=== PATIENT | female | born 1935 | race Caucasian/White ===

== ENCOUNTER 2019-04-14 16:10 | Outpatient (RCR) | payer MEDICARE, OTHER, SELFPAY | END 2019-05-04 12:34 | disposition home or self-care (01) | LOC: PT.CARL 16:10 | PROVIDERS: PCP Family Medicine; Visit Provider Orthopaedic Surgery | DX: M75.41 Impingement syndrome of right shoulder (principal) | CPT/HCPCS: 97110; 97163 ==

== ENCOUNTER → 2019-05-27 11:03 | Outpatient (CLI) | payer MEDICARE, OTHER, SELFPAY ==
[2019-05-27 11:42] LABS: Basophils % 0.3 % (0.1-2.0); Eosinophils # 0.2 K/mm3 (0.0-0.4); Eosinophils % 2.3 % (0.1-12.0); Hematocrit 42.5 % (37.0-47.0); Hemoglobin 13.4 g/dL (12.2-16.2); Lymphocytes # 2.7 K/mm3 (0.7-4.5); Lymphocytes % 32.9 % (10-50); Mean Corpuscular HGB Conc 31.6 g/dL (31.8-35.4); Mean Corpuscular Volume 98.3 fl (81-99); Mean Platelet Volume 9.2 fl (7.4-10.4); Monocytes # 0.4 K/mm3 (0.1-1.0); Monocytes % 5.2 % (1.7-9.3); Neutrophils # 4.9 K/mm3 (1.8-7.8); Neutrophils % 59.3 % (37.0-80.0); Platelet Count 224 K/mm3 (142-424); Red Blood Count 4.33 M/mm3 (4.20-5.40); Red Cell Distribution Width 13.6 % (11.5-17.5); White Blood Count 8.2 K/mm3 (4.8-10.8)
[2019-05-27 12:09] LABS: Alanine Aminotransferase 19 U/L (12-78); Albumin Level 4.2 g/dl (3.5-5.0); Albumin/Globulin Ratio 1.7 (1.1-1.8); Alkaline Phosphatase 100 U/L (38-126); Anion Gap 12.3 mEq/L (5-15); Aspartate Amino Transferase 31 U/L (14-36); Bilirubin,Total 0.3 mg/dl (0.2-1.3); Blood Urea Nitrogen 19 mg/dl (7-17); Calcium 9.9 mg/dl (8.4-10.2); Carbon Dioxide 26 mmol/L (22.0-30.0); Chloride 106 mmol/L (98-107); Estimated Glomerular Filt Rate 60 ml/min (>60); GFR (African American) 73 ML/MIN (>60); Globulin 2.5 g/dL (1.3-3.2); Glucose 126 mg/dl (74-100); Lipase 81 U/L (23-300); Potassium 4.3 mmoL/L (3.5-5.1); Sodium 140 mmol/L (136-145); Total Protein,Serum 6.7 g/dl (6.3-8.2)
[2019-05-27 12:30] LABS: Troponin I < 0.01 ng/ml (0.00-0.034)
[2019-05-27 12:40] LABS: Thyroid Stimulating Hormone 1.97 uIU/mL (0.465-4.68)
== END ==
PROVIDERS: Visit Provider Internal Medicine Adolescent Medicine
DX: R07.89 Other chest pain (principal); E03.9 Hypothyroidism, unspecified
CPT/HCPCS: 36415; 80053; 83690; 84443; 84484; 85025

== ENCOUNTER → 2019-06-01 06:59 | Outpatient (CLI) | payer MEDICARE, OTHER, SELFPAY ==
--- NOTE | 2019-06-01 | CA_ITS ---
APPROVED REPORT Exam: Pharmacologic Technologist: Nolvia Mcnally Ht: 5 ft 7 in Wt: 160 lbs BSA: 1.84 m2 HR: 72 bpm BP: 177/84 mmHg Indications: Chest pain, Shortness of Breath Medical History Medications: Omeprazole,,,,, Levothyroxine,,,,, Stress Test Details Test: LEXISCAN HR Resting HR: 74 bpm Max Heart Rate (APMHR): 138 bpm Max HR Achieved: 117 bpm Target HR (85% APMHR): 117 bpm % of APMHR: 84 Recovery HR: 99 bpm BP Resting BP: 177.0/84.0 mmHg Max BP: 177.0/84.0 mmHg Recovery BP: 173.0/95.0 mmHg ECG Clinical Exercise duration: 04:01 min Highest Stage Achieved: Exercise capacity: 1.0 METs Stress ECG Conclusion Resting ECG: Sinus rhythm Lexiscan portion completed. Patient complained of bilateral arm and leg pain during peak infusion. Symptoms: Bilateral arm and leg pain during peak infusion. Resolved in recovery. No chest pain. No shortness of breath. Arrhythmias/Ectopy: Occasional PVC. ST-T Changes: Less than 1.[address] depression. Conclusion: Images to follow. Test Summary REST . . . . . . . Resting REST 07:17 . . 74 . 177/ 84 . . Stage 1 . . . . . . . Myoview Injected Stage 1 01:00 . . 103 . . . . Stage 2 01:00 . . 117 . 172/ 83 . . Stage 3 01:00 . . 115 . 174/ 83 . . Stage 4 01:00 . . 109 . 166/ 80 . . Stage 4 01:01 . . 109 . 166/ 80 . Stop exercise at 04:01 RECOVERY 01:00 . . 105 . . . . RECOVERY 02:00 . . 98 . 151/ 78 . . RECOVERY 03:00 . . 97 . 169/ 79 . . RECOVERY 04:00 . . 103 . 169/ 87 . . RECOVERY 05:00 . . 99 . 173/ 95 . . RECOVERY 06:00 . . 94 . 173/ 95 . . RECOVERY 06:22 . . 91 . 173/ 95 . . Electronically signed by : Agustín Araujo, 06/01/2019 19:36:49
--- NOTE | 2019-06-01 07:44 | NM_ITS ---
APPROVED REPORT Exam: Nuclear Stress Test Indication: Chest pain, Family history Patient Location: Outpatient Stress Tech: Nolvia Mcnally [place] Tech:Taylor Goodman, ARRT, RT (R)(N) Ht: 5 ft 7 in Wt: 160 lbs Bra Size: 40C HR: 72 bpm BP: 177/84 mmHg BSA: 1.84 m2 BMI: 25.0 History: Chest pain, Family history Procedure: Patient received a 0.4 mg of intravenous Lexiscan, resting heart rate 72 bpm, resting blood pressure 177/84 mmHg, with Lexiscan maximum heart rate achived was 117 bpm which is Less than 85 % of the maximum predicted heart rate and blood pressure was 172/83 mmHg. With Lexiscan, patient denied any complaint of chest pain. Electrocardiogram The resting electrocardiogram showed sinus rhythm, with Lexiscan there is less than 1.[address] segment depression noted from the baseline EKG. The EKG portion of the Lexiscan Myoview is nondiagnostic. Cardiac Stress and Resting SPECT Images: Cardiac Stress and Resting SPECT images were obtained using technetium 99m Myoview 32.3 mCi stress and 10.35 mCi at rest. Gated SPECT with analysis of segmental wall motion and calculation of the ejection fraction also done. Cardiac stress and resting SPECT images show decreased tracer activity in the anterolateral lateral wall which improves on the resting images suggestive of reversible ischemia, computer derived ejection fraction is 58% with mild anterolateral and lateral wall hypokinesis. Right ventricle is normal size and contractility. Conclusion: 1. The EKG portion of the Lexiscan Myoview is nondiagnostic. 2. Scintigraphic evidence of mild reversible ischemia involving the anterolateral and lateral wall, computer derived ejection fraction is 58% with segmental wall motion abnormality described above, right ventricle is normal size and contractility. 3. Abnormal Lexiscan Myoview study. Electronically signed by : Agustín Araujo, 06/01/2019 19:40:01
--- NOTE | 2019-06-01 07:47 | HMH.ITSHM ---
Current Home Medications as stated by this patient Ignacia Maldonado or account development representative. []PRILOSEC LEVOTHYROXINE
== END ==
PROVIDERS: PCP Family Medicine; Visit Provider Internal Medicine Adolescent Medicine
DX: R07.89 Other chest pain (principal)
CPT/HCPCS: 78452; 93017; A9502; J2785

== ENCOUNTER 2019-06-15 08:05 | Day surgery (SDC) | payer MEDICARE, OTHER, SELFPAY ==
[2019-06-15] VITALS (13 sets, daily range): BP systolic 142–180; BP diastolic 57–97; PULSE 67–88; RESP 14–20; TEMP 36.6–36.8; O2SAT 96–99; BMI 24.6
[2019-06-15 08:45] LABS: Basophils # 0.1 K/mm3 (0-0.2); Basophils % 0.8 % (0.1-2.0); Eosinophils # 0.4 K/mm3 (0.0-0.4); Eosinophils % 4.8 % (0.1-12.0); Hematocrit 43.9 % (37.0-47.0); Hemoglobin 13.7 g/dL (12.2-16.2); Lymphocytes # 2.4 K/mm3 (0.7-4.5); Lymphocytes % 30.9 % (10-50); Mean Corpuscular HGB Conc 31.2 g/dL (31.8-35.4); Mean Corpuscular Hemoglobin 30.6 pg (27.0-31.2); Mean Corpuscular Volume 98.1 fl (81-99); Mean Platelet Volume 8.9 fl (7.4-10.4); Monocytes # 0.4 K/mm3 (0.1-1.0); Monocytes % 5.7 % (1.7-9.3); Neutrophils # 4.4 K/mm3 (1.8-7.8); Neutrophils % 57.7 % (37.0-80.0); Platelet Count 230 K/mm3 (142-424); Red Blood Count 4.47 M/mm3 (4.20-5.40); Red Cell Distribution Width 13.6 % (11.5-17.5); White Blood Count 7.7 K/mm3 (4.8-10.8)
[2019-06-15 08:47] LABS: Chloride 106 mmol/L (98-107); Potassium 4.3 mmoL/L (3.5-5.1); Sodium 142 mmol/L (136-145)
[2019-06-15 08:50] LABS: Anion Gap 13.3 mEq/L (5-15); Blood Urea Nitrogen 18 mg/dl (7-17); Calcium 9.5 mg/dl (8.4-10.2); Carbon Dioxide 27 mmol/L (22.0-30.0); Creatinine Clearance Estimated 50 mL/min (50-200); Estimated Glomerular Filt Rate 60 ml/min (>60); GFR (African American) 73 ML/MIN (>60); Glucose 144 mg/dl (74-100)
--- NOTE | 2019-06-15 09:00 | IR_ITS ---
APPROVED REPORT Patient Location: Outpatient Audio Visual Arts Director: CJ Young RT (R) PROCEDURES Left heart catheterization Left ventriculogram Selective coronary angiogram Drug-eluting stent deployment to the proximal dominant right coronary artery INDICATION High risk abnormal stress test, Coronary artery disease Informed consent was obtained prior to the procedure. COMPLICATIONS none Estimated Blood Loss: less than 10 mls TECHNIQUE One percent lidocaine used to anesthetize the right anterior aspect of the wrist. The right radial artery was accessed via the Seldinger technique. A 6 Burkin[place] sheath was placed in the right radial artery. 2.5 mg of verapamil, 800 mcg of nitroglycerin, 1mg Lidocaine and 5000 U Heparin were given through the arterial sheath. The trap catheter was also used to perform left heart catheterization, left ventriculogram and selective coronary angiogram. At the end the diagnostic procedure therapeutic heparin was administered giving a therapeutic ACT. And I Leydi right guide catheter was used to intubate the right coronary artery and a BMW wire was used to traverse the stenosis in the right coronary artery. A 3.5 x 18 mm resolute amari stent was deployed at 20 slim reducing the severe stenosis to 0%. JENNIE-3 flow was present before and after the procedure. After achieving excellent angiographic results the apparatus was removed the sheath was removed good hemostasis was achieved using TR banding patient was transferred to the postop holding area in stable condition ANGIOGRAPHIC RESULTS The left main artery Normal The left anterior descending artery Normal The circumflex artery Is nondominant and has proximal 40% stenosis The right coronary artery Is a large dominant vessel has a proximal concentric 70 to 80% stenosis The FENG ventriculogram reveals Normal 65% The left ventricular end-diastolic pressure 10 mmHg IMPRESSION Severe single-vessel coronary disease as described above Successful stenting of a proximal dominant right coronary artery severe disease reduced to 0% with one drug-eluting stent Persistent moderate stenosis in a small nondominant circumflex artery Normal ejection fraction Normal left ventricular end-diastolic pressure PLAN 1. Dual antiplatelet therapy 2. LDL less than 55 3. Cardiac rehabilitation 4. Avoidance of tobacco products 5. Risk factor modification Electronically signed by : Isaias Minor, 06/15/2019 10:47:40
[2019-06-15 12:12] LABS: CATHL Activated Clotting Time 305 SEC (74-125)
--- NOTE | 2019-06-15 13:54 | HMH.PHACLD ---
Ignacia Maldonado has received discharge medication counseling on the following medications: BRILINTA 90MG LISINOPRIL 10MG LIPITOR 40MG PATIENT IS ALREADY TAKING METOPROLOL AND ASPIRIN AT HOME. PATIENT IS TO CONTINUE ALL OTHER HOME MEDICATIONS. SHE VERBALIZED UNDERSTANDING AND HAD NO QUESTIONS AT THIS TIME. -Kendall FUENTES PHARMD
== END 2019-06-15 14:35 | disposition home or self-care (01) ==
LOC: CATHLAB 08:07
PROVIDERS: PCP Family Medicine; Visit Provider Internal Medicine
DX: K21.9 Gastro-esophageal reflux disease without esophagitis; R94.31 Abnormal electrocardiogram [ECG] [EKG]; R94.39 Abnormal result of other cardiovascular function study; Z82.49 Family history of ischemic heart disease and other diseases of the circulatory system; I25.118 Atherosclerotic heart disease of native coronary artery with other forms of angina pectoris; Z79.899 Other long term (current) drug therapy
CPT/HCPCS: 80048; 85025; 85347; 92928; 93458; 99152; C1725; C1769; C1876; C9600; J1644; Q9967

== ENCOUNTER 2023-09-25 14:00 | Outpatient (RCR) | payer MEDICARE, OTHER, SELFPAY | END 2023-10-29 12:59 | disposition home or self-care (01) | LOC: PT 14:00 | PROVIDERS: Visit Provider Orthopaedic Surgery Adult Reconstructive Orthopaedic Surgery | DX: M70.62 Trochanteric bursitis, left hip (principal); Z96.642 Presence of left artificial hip joint | CPT/HCPCS: 97014; 97035; 97110; 97163; G0283 ==

== ENCOUNTER 2023-12-24 15:00 | Outpatient (CLI) | payer MEDICARE, OTHER, SELFPAY ==
[2023-12-24 16:15] LABS: Basophils # 0.1 K/mm3 (0-0.2); Basophils % 0.6 % (0.1-2.0); Eosinophils # 0.1 K/mm3 (0.0-0.4); Eosinophils % 1.3 % (0.1-12.0); Hematocrit 42.1 % (37.0-47.0); Lymphocytes # 2.8 K/mm3 (0.7-4.5); Mean Corpuscular HGB Conc 33.2 g/dL (31.8-35.4); Mean Corpuscular Hemoglobin 31.2 pg (27.0-31.2); Mean Corpuscular Volume 93.9 fl (81-99); Mean Platelet Volume 8.6 fl (7.4-10.4); Monocytes # 0.5 K/mm3 (0.1-1.0); Monocytes % 5.7 % (1.7-9.3); Neutrophils # 4.8 K/mm3 (1.8-7.8); Neutrophils % 58.4 % (37.0-80.0); Platelet Count 243 K/mm3 (142-424); Red Blood Count 4.48 M/mm3 (4.20-5.40); Red Cell Distribution Width 13.8 % (11.5-17.5); White Blood Count 8.3 K/mm3 (4.8-10.8)
[2023-12-24 16:44] LABS: Alanine Aminotransferase 24 U/L (12-78); Albumin Level 4.2 g/dl (3.5-5.0); Albumin/Globulin Ratio 1.8 (1.1-1.8); Alkaline Phosphatase 135 U/L (38-126); Anion Gap 15.2 mEq/L (5-15); Aspartate Amino Transferase 33 U/L (14-36); Bilirubin,Total 0.6 mg/dl (0.2-1.3); Blood Urea Nitrogen 23 mg/dl (7-17); Calcium 10.1 mg/dl (8.4-10.2); Carbon Dioxide 21 mmol/L (22.0-30.0); Chloride 109 mmol/L (98-107); Estimated Glomerular Filt Rate 59 ml/min (>60); GFR (African American) 72 ML/MIN (>60); Globulin 2.3 g/dL (1.3-3.2); Glucose 155 mg/dl (74-100); Potassium 4.2 mmoL/L (3.5-5.1); Sodium 141 mmol/L (136-145); Total Protein,Serum 6.5 g/dl (6.3-8.2); Uric Acid 5.6 mg/dl (2.5-6.2)
[2023-12-24 16:58] LABS: Troponin I < 0.01 ng/ml (0.00-0.034)
[2023-12-24 16:59] LABS: T4 (Thyroxine) 7.3 ug/dl (5.53-11.0)
[2023-12-24 17:57] LABS: Erythrocyte Sedimentation Rate 17 mm/hr (0-30)
[2023-12-24 17:58] LABS: HIV (1&2) Antibody Rapid NONREACTIVE (NONREACTIVE)
[2023-12-25 05:15] LABS: HCV Ab Non Reactive (Non Reactive)
== END 2023-12-24 23:59 | disposition home or self-care (01) ==
LOC: LAB.DROPOF 12-25 11:41
PROVIDERS: PCP Family Medicine; Visit Provider Family Medicine
DX: E78.5 Hyperlipidemia, unspecified (principal); I10 Essential (primary) hypertension; Z11.59 Encounter for screening for other viral diseases
CPT/HCPCS: 80053; 84436; 84443; 84484; 84550; 85025; 85651; 86803; 87389

== ENCOUNTER 2024-03-13 10:58 | Observation (INO) | payer MEDICARE, OTHER, SELFPAY ==
[2024-03-13] VITALS (22 sets, daily range): BP systolic 93–168; BP diastolic 46–94; PULSE 60–97; RESP 14–24; TEMP 36.4–39.3; O2SAT 95–100; BMI 24.3; BMI 23.8
--- NOTE | 2024-03-13 11:22 | PC.NURSE ---
Patient in room and needs nothing
[2024-03-13 11:23] LABS: Basophils % 0.2 % (0.1-2.0); Eosinophils # 0.1 K/mm3 (0.0-0.4); Eosinophils % 0.4 % (0.1-12.0); Hematocrit 35.9 % (37.0-47.0); Hemoglobin 11.9 g/dL (12.2-16.2); Lymphocytes # 1.9 K/mm3 (0.7-4.5); Lymphocytes % 11.8 % (10-50); Mean Corpuscular HGB Conc 33.1 g/dL (31.8-35.4); Mean Corpuscular Hemoglobin 30.2 pg (27.0-31.2); Mean Corpuscular Volume 91.1 fl (81-99); Mean Platelet Volume 11.4 fl (7.4-10.4); Monocytes # 1.4 K/mm3 (0.1-1.0); Monocytes % 9.2 % (1.7-9.3); Neutrophils # 12.3 K/mm3 (1.8-7.8); Neutrophils % 77.8 % (37.0-80.0); Platelet Count 181 K/mm3 (142-424); Red Blood Count 3.94 M/mm3 (4.20-5.40); Red Cell Distribution Width 13.8 % (11.5-17.5); White Blood Count 15.7 K/mm3 (4.8-10.8)
--- NOTE | 2024-03-13 11:30 | PC.NURSE ---
pt was given a warm blanket no needs at this time call light in reach
--- NOTE | 2024-03-13 11:32 | PC.NURSE ---
VIDA VEE NOTIFIED OF BP TENDING DOWN
[2024-03-13 11:41] LABS: Albumin Level 3.8 g/dl (3.5-5.0); Chloride 105 mmol/L (98-107); Sodium 131 mmol/L (136-145)
[2024-03-13 11:43] LABS: Blood Urea Nitrogen 26 mg/dl (7-17); Creatinine Clearance Estimated 37 mL/min (50-200); Estimated Glomerular Filt Rate 42 ml/min (>60); GFR (African American) 51 ML/MIN (>60)
[2024-03-13 11:44] LABS: Alanine Aminotransferase 24 U/L (12-78); Alkaline Phosphatase 61 U/L (38-126); Aspartate Amino Transferase 41 U/L (14-36); Bilirubin,Total 1.1 mg/dl (0.2-1.3); Calcium 8.6 mg/dl (8.4-10.2); Carbon Dioxide 18 mmol/L (22.0-30.0); Glucose 144 mg/dl (74-100); Total Protein,Serum 6.2 g/dl (6.3-8.2)
[2024-03-13 11:48] LABS: Potassium 5.5 mmoL/L (3.5-5.1)
[2024-03-13 11:50] LABS: Albumin/Globulin Ratio 1.6 (1.1-1.8); Anion Gap 13.5 mEq/L (5-15); Globulin 2.4 g/dL (1.3-3.2)
--- NOTE | 2024-03-13 11:50 | ED_ITS ---
Discharge Plan Disposition Patient Disposition: Admitted Condition: Good Prescriptions Prescriptions: No Action metoprolol succinate 100 mg tablet extended release 24 hr 100 mg PO BID Patient Comments: TAKE 1 TABLET 2 TIMES EACH DAY amlodipine 5 mg tablet 5 mg PO DAILY Patient Comments: TAKE 1 TABLET 1 TIME EACH DAY IN THE EVENING oseltamivir 75 mg capsule 75 mg PO DAILY Patient Comments: TAKE ONE CAPSULE BY MOUTH TWICE DAILY FOR 5 DAYS for flu losartan 100 mg tablet 100 mg PO DAILY Patient Comments: TAKE 1 TABLET 1 TIME EACH DAY IN THE MORNING Januvia 25 mg Tablet 25 mg PO DAILY Referrals Follow up/Referrals: Coni Sena [Primary Care Provider] - See instructions Activity Restrictions/Add. Instructions Additional Instructions/Restrictions: Today you were evaluated in the emergency department and diagnosed with pneumonia. Your blood pressure remained stable during your ED stay. Your oxygen saturation was in the upper 90s. It is important that you follow-up with your PCP within 7 days. Clinical Impressions Clinical Impression: Dyspnea, Influenza A Pneumonia Qualifiers: Pneumonia type: due to unspecified organism Laterality: bilateral Lung location: unspecified part of lung Qualified Code(s): J18.9 - Pneumonia, unspecified organism Print Language Print Language: Icelandic Discharge ED Provider: Kei Carrillo General Adult HPI <Kylie Perry APRN - Last Filed: 03/13/24 14:57> General Chief complaint: Weakness Stated complaint: hypotension Time Seen by Provider: 03/13/24 11:49 Mode of Arrival: EMS Source of Information: Patient Limitations: No Limitations Description of Symptoms (Recalled from ER Triage Doc. by RN): pt presents to ED via EMs for fatigue, weakness, hypotension. pt was diagnosed with flu type a yesterday at pcp office. pt reports being given tamiflu for diagnosis. pt reports headache, body aches, weakness. upon ems arrival pt was hypotensive, pt give 500 ml bolus in ambulance. History of Present Illness HPI narrative: Patient is a 88-year-old female who presents to the ED via EMS for hypotension and shortness of breath that occured this morning. Patient states that she was diagnosed with influenza A yesterday at a clinic. She adds that she had 2 recent blood pressure medication changes within the past 2 weeks, is having trouble keeping her blood pressure stable. Patient states that prior to arrival she took 1 clonidine in combo with her additional anithypertensiveswhich she believes caused her hypotension. She currently has a 8/10 headache, frontal, describes as dull ache. Feels like normal headache. Denies suddent onset, thunderclap, denies visual changes. She reports she has had 3 days of fever, body aches and chills. Developed shortness of breath this morning. Has not taken any symptomatic medication prior to arrival. Patient denies visual disturbances, posterior neck pain, posterior neck stiffness, chest pain, recent falls, anticoagulation, abdominal pain, vomiting, dysuria, flank pain. Friend at bedside. Related Data Home Medications ?Medication ?Instructions ?Recorded ?Confirmed amlodipine 5 mg tablet 5 mg PO DAILY 03/13/24 03/13/24 losartan 100 mg tablet 100 mg PO DAILY 03/13/24 03/13/24 metoprolol succinate 100 mg 100 mg PO BID 03/13/24 03/13/24 tablet,extended release 24 hr oseltamivir 75 mg capsule 75 mg PO DAILY 03/13/24 03/13/24 sitagliptin phosphate 25 mg tablet 25 mg PO DAILY 03/13/24 03/13/24 (Mina) Allergies Allergy/AdvReac Type Severity Reaction Status Date / Time No Known Allergies Allergy Verified 03/13/24 11:57 [facility] <Kylie Perry, [employer] - Last Filed: 03/13/24 14:57> [facility] Disclaimer: The information contained in this section may have been updated after the patient was seen, as this information can be updated by other users. Medical History Dizziness Dyspnea Gastroesophageal reflux disease Typical angina Abnormal EKG Family history of heart disease Abnormal cardiovascular stress test Social History Smoking Status: Never smoker second hand exposure: No alcohol intake: never substance use type: denies use current occupational status: retired Travel in the last 8 weeks: Inside the [place] household members: none housing: house current occupational exposures/hazards: No caffeine: Yes Have you lived/traveled outside US in past 30 days?: No Contact w/someone who lives/traveled outside US past 30 days?: No Exposure to someone with infectious disease in past 14 days?: No Do you have a fever (greater than 100.4 F or 38 C)?: No Have you tested positive for COVID-19: No Exposed to someone with COVID-19 in past 14 days?: No Do you have a sore throat?: No Do you have a cough?: No Do you have any weakness?: No Do you have any diarrhea?: No Are you experiencing any unusual bleeding?: No Do you have any muscle aches/pain?: No Do you have any abdominal pain?: No Are you experiencing loss of taste or smell?: No Other Medical History Have you received the Flu Vaccine for this season: Yes Have you received the Pneumonia Vaccine: No <Kylie Perry APRN - Last Filed: 03/13/24 14:57> ROS Obtained: Yes Systems reviewed as appropriate & no additional complaints except as documented Physical Exam <Kylei Perry APRN - Last Filed: 03/13/24 14:57> General General appearance: alert and in no apparent distress Head Head exam: atraumatic Eye Eye exam: Present normal appearance and PERRL ENT ENT exam: Present normal exam Neck Neck exam: Present normal inspection, full ROM and trachea midline Chest Chest inspection: Present normal inspection and symmetric chest wall rise Respiratory Respiratory exam: Present normal lung sounds bilaterally Cardiovascular Cardiovascular exam: Present regular rate and normal rhythm Abdominal Exam Abdominal exam: Present soft Extremities Exam Extremities exam: Present normal inspection Neurological Exam Neurological exam: Present alert, oriented X3 and motor sensory deficit Psychiatric Psychiatric exam: Present normal affect Skin Skin exam: Present warm and dry Medical Decision Making <Kylie Perry APRN - Last Filed: 03/13/24 14:57> Medical Records Screening: Per USPSTF and CDC recommendations, given the prevalence of disease in our region, it is our hospital?s policy to screen for HIV and viral Hepatitis for all patients aged 18 and over and those with ongoing risk factors. Clem Inquiry Pt receiving controlled substance: No Vital Signs: 03/13/24 10:51 03/13/24 10:58 03/13/24 11:00 Temperature 98.3 F Temperature Source Oral Pulse Rate 70 65 Pulse Rate [Left Radial] 71 Respiratory Rate 19 Blood Pressure 121/61 112/50 L Blood Pressure [Right Arm] 123/55 L Blood Pressure Mean [Right Arm] 77 02 Sat by Pulse Oximetry 99 97 99 Oxygen Delivery Method Room Air Room Air Room Air 03/13/24 11:15 03/13/24 11:30 03/13/24 11:45 Temperature Temperature Source Pulse Rate 69 62 63 Pulse Rate [Left Radial] Respiratory Rate 24 Blood Pressure 96/58 L 93/46 L 109/53 L Blood Pressure [Right Arm] Blood Pressure Mean [Right Arm] 02 Sat by Pulse Oximetry 98 98 99 Oxygen Delivery Method Room Air Room Air Room Air 03/13/24 12:00 03/13/24 12:15 03/13/24 12:30 Temperature Temperature Source Pulse Rate 60 61 63 Pulse Rate [Left Radial] Respiratory Rate 21 23 20 Blood Pressure 115/50 L 108/54 L 112/60 Blood Pressure [Right Arm] Blood Pressure Mean [Right Arm] 02 Sat by Pulse Oximetry 98 95 99 Oxygen Delivery Method Room Air Room Air Room Air 03/13/24 12:45 03/13/24 13:00 03/13/24 13:15 Temperature Temperature Source Pulse Rate 63 65 62 Pulse Rate [Left Radial] Respiratory Rate 19 15 16 Blood Pressure 109/51 L 111/52 L 113/55 L Blood Pressure [Right Arm] Blood Pressure Mean [Right Arm] 02 Sat by Pulse Oximetry 99 98 99 Oxygen Delivery Method Room Air Room Air Room Air 03/13/24 13:30 03/13/24 14:01 03/13/24 14:30 Temperature Temperature Source Pulse Rate 66 69 63 Pulse Rate [Left Radial] Respiratory Rate 16 16 22 Blood Pressure 129/65 139/61 148/70 H Blood Pressure [Right Arm] Blood Pressure Mean [Right Arm] 02 Sat by Pulse Oximetry 97 100 100 Oxygen Delivery Method Room Air Room Air Room Air 03/13/24 15:00 Temperature Temperature Source Pulse Rate 64 Pulse Rate [Left Radial] Respiratory Rate 14 Blood Pressure 136/65 Blood Pressure [Right Arm] Blood Pressure Mean [Right Arm] 02 Sat by Pulse Oximetry 99 Oxygen Delivery Method Room Air Lab Data Lab results reviewed: Yes I reviewed the patient's lab results. Lab Results 03/13/24 10:53: WBC 15.7 H, RBC 3.94 L, Hgb 11.9 L, Hct 35.9 L, MCV 91.1, MCH 30.2, MCHC 33.1, RDW 13.8, Plt Count 181, MPV 11.4 H, Neut % (Auto) 77.8, Lymph % (Auto) 11.8, [place] % (Auto) 9.2, Eos % (Auto) 0.4, Baso % (Auto) 0.2, Neut # (Auto) 12.3 H, Lymph # (Auto) 1.9, [place] # (Auto) 1.4 H, Eos # (Auto) 0.1, Baso # (Auto) 0.0, Total Counted 100, Neutrophils % (Manual) 88 H, Lymphocytes % (Manual) 10, Monocytes % (Manual) 2, Platelet Estimate Normal, RBC Morphology Normal, Sodium 131 L, Potassium 5.5 H, Chloride 105, Carbon Dioxide 18 L, Anion Gap 13.5, BUN 26 H, Creatinine 1.20 H, Estimated Creat Clear 37, Estimated GFR 42 L, Est GFR ( Amer) 51 L, Glucose 144 H, Calcium 8.6, Total Bilirubin 1.1, AST 41 H, ALT 24, Alkaline Phosphatase 61, Troponin I < 0.01, NT-Pro-B Natriuret Pep 201, Total Protein 6.2 L, Albumin 3.8, Globulin 2.4, Albumin/Globulin Ratio 1.6, Acetaminophen 20 03/13/24 10:53 03/13/24 10:53 Orders (Tests/Meds): ED MEDICATIONS Discontinued Medications Generic Name Dose Route Start Last Admin Trade Name Freq PRN Reason Stop Dose Admin Acetaminophen 1,000 mg 03/13/24 12:35 03/13/24 13:00 Acetaminophen 1,000mg/100ml Vial IV 03/13/24 12:36 1,000 mg ONCE ONE Administration Sodium Chloride 1,000 mls @ 999 mls/hr 03/13/24 11:39 03/13/24 11:53 Sod Chlor 0.9% 1000ml Bag IV 03/13/24 12:39 999 mls/hr .Q1H1M ONE Administration Ondansetron HCl 4 mg 03/13/24 12:01 03/13/24 12:06 Ondansetron 4mg/2ml Vial IV 03/13/24 12:02 4 mg ONCE ONE Administration ORDERS Category Date Time Status CXR --portable [XR chest portable] Stat Exams 03/13/24 12:01 Completed Acetaminophen Stat Lab 03/13/24 10:53 Completed BNP [NT Pro Brain Natriuretic Pep.] Stat Lab 03/13/24 10:53 Completed CMP [Comprehensive Metabolic Panel] Stat Lab 03/13/24 10:53 Completed Complete Blood Count Auto Diff Stat Lab 03/13/24 10:53 Completed Trop I [Troponin I] Stat Lab 03/13/24 10:53 Completed Troponin I Q3H Lab 03/13/24 15:15 Ordered Troponin I Q3H Lab 03/13/24 18:15 Ordered HEART Score History (anamnesis): Slightly suspicious ECG: Non-specific disturbance Age: >65 years Risk factors: 1-2 risk factors Troponin: </= normal limit HEART Score: 4 Medical Decision Narrative: In summary, patient is an 88-year-old female PMHx CAD, HTN, HLD, history of dizziness, angina, history of abnormal EKG who presented to the ED via EMS for hypotension that occurred this morning. Patient was recently diagnosed with influenza A yesterday at an outpatient clinic. She is currently taking Tamiflu without adverse reactions. She states that this morning she took her 2 blood pressure medications plus prn clonidine as she was concerned that her blood pressure was too high. Patient states she follows with cardiology here, had 2 recent blood pressure medication changes within the past 2 weeks. She is having difficulty maintaining a stable blood pressure. Patient presents with blood pressure logs. She also adds that this morning she has developed a headache that feels like a regular headache, no red flag symptoms. Patient states her headache is a dull ache in the frontal aspect. Denies any visual changes or other concerning red flag symptoms. Upon my initial assessment, her systolic is 109 with a normal MAP. Patient is alert and oriented. She denies any chest pain but admits to mild shortness of breath, is not short of breath upon presentation. She has no chest wall tenderness, no abdominal tenderness. Abdomen is soft. Initially patient is symptomatically managed with IV fluids, IV acetaminophen and IV Zofran. Differential diagnosis include ACS, dissection, pneumonia, pneumothorax, infectious process, electrolyte abnormality, dehydration, among others. Will proceed with hematologic labs including troponin and BNP, chest x-ray, EKG. Initial workup reviewed by me, CBC remarkable for leukocytosis, WBC 15.7, stable H&H. CMP remarkable for hyponatremia, 131. Potassium 5.5. BUN 26, creatinine 1.20, baseline appears to be 0.90. Troponin negative. BNP normal 201. I considered performing CT of the chest, however I feel there is a low suspicion for pulmonary embolism at this time. Social determinants of health: Patient is elderly and lives alone, poor access to transportation. Patient was able to tolerate p.o. fluids, she was ambulatory with assistance and unsteady which she states is different from her baseline. Given this I feel that the patient would benefit from admission. The case was discussed with hospital medicine regarding management and they will admit the patient to their service for continued evaluation at this time for influenza A, pneumonia and hyponatremia. <Kei Carrillo MD - Last Filed: 03/13/24 15:27> Vital Signs: 03/13/24 10:51 03/13/24 10:58 03/13/24 11:00 Temperature 98.3 F Temperature Source Oral Pulse Rate 70 65 Pulse Rate [Left Radial] 71 Respiratory Rate 19 Blood Pressure 121/61 112/50 L Blood Pressure [Right Arm] 123/55 L Blood Pressure Mean [Right Arm] 77 02 Sat by Pulse Oximetry 99 97 99 Oxygen Delivery Method Room Air Room Air Room Air 03/13/24 11:15 03/13/24 11:30 03/13/24 11:45 Temperature Temperature Source Pulse Rate 69 62 63 Pulse Rate [Left Radial] Respiratory Rate 24 Blood Pressure 96/58 L 93/46 L 109/53 L Blood Pressure [Right Arm] Blood Pressure Mean [Right Arm] 02 Sat by Pulse Oximetry 98 98 99 Oxygen Delivery Method Room Air Room Air Room Air 03/13/24 12:00 03/13/24 12:15 03/13/24 12:30 Temperature Temperature Source Pulse Rate 60 61 63 Pulse Rate [Left Radial] Respiratory Rate 21 23 20 Blood Pressure 115/50 L 108/54 L 112/60 Blood Pressure [Right Arm] Blood Pressure Mean [Right Arm] 02 Sat by Pulse Oximetry 98 95 99 Oxygen Delivery Method Room Air Room Air Room Air 03/13/24 12:45 03/13/24 13:00 03/13/24 13:15 Temperature Temperature Source Pulse Rate 63 65 62 Pulse Rate [Left Radial] Respiratory Rate 19 15 16 Blood Pressure 109/51 L 111/52 L 113/55 L Blood Pressure [Right Arm] Blood Pressure Mean [Right Arm] 02 Sat by Pulse Oximetry 99 98 99 Oxygen Delivery Method Room Air Room Air Room Air 03/13/24 13:30 03/13/24 14:01 03/13/24 14:30 Temperature Temperature Source Pulse Rate 66 69 63 Pulse Rate [Left Radial] Respiratory Rate 16 16 22 Blood Pressure 129/65 139/61 148/70 H Blood Pressure [Right Arm] Blood Pressure Mean [Right Arm] 02 Sat by Pulse Oximetry 97 100 100 Oxygen Delivery Method Room Air Room Air Room Air 03/13/24 15:00 Temperature Temperature Source Pulse Rate 64 Pulse Rate [Left Radial] Respiratory Rate 14 Blood Pressure 136/65 Blood Pressure [Right Arm] Blood Pressure Mean [Right Arm] 02 Sat by Pulse Oximetry 99 Oxygen Delivery Method Room Air Lab Data Lab Results 03/13/24 10:53: WBC 15.7 H, RBC 3.94 L, Hgb 11.9 L, Hct 35.9 L, MCV 91.1, MCH 30.2, MCHC 33.1, RDW 13.8, Plt Count 181, MPV 11.4 H, Neut % (Auto) 77.8, Lymph % (Auto) 11.8, [place] % (Auto) 9.2, Eos % (Auto) 0.4, Baso % (Auto) 0.2, Neut # (Auto) 12.3 H, Lymph # (Auto) 1.9, [place] # (Auto) 1.4 H, Eos # (Auto) 0.1, Baso # (Auto) 0.0, Total Counted 100, Neutrophils % (Manual) 88 H, Lymphocytes % (Manual) 10, Monocytes % (Manual) 2, Platelet Estimate Normal, RBC Morphology Normal, Sodium 131 L, Potassium 5.5 H, Chloride 105, Carbon Dioxide 18 L, Anion Gap 13.5, BUN 26 H, Creatinine 1.20 H, Estimated Creat Clear 37, Estimated GFR 42 L, Est GFR ( Amer) 51 L, Glucose 144 H, Calcium 8.6, Total Bilirubin 1.1, AST 41 H, ALT 24, Alkaline Phosphatase 61, Troponin I < 0.01, NT-Pro-B Natriuret Pep 201, Total Protein 6.2 L, Albumin 3.8, Globulin 2.4, Albumin/Globulin Ratio 1.6, Acetaminophen 20 Orders (Tests/Meds): ED MEDICATIONS Discontinued Medications Generic Name Dose Route Start Last Admin Trade Name Freq PRN Reason Stop Dose Admin Acetaminophen 1,000 mg 03/13/24 12:35 03/13/24 13:00 Acetaminophen 1,000mg/100ml Vial IV 03/13/24 12:36 1,000 mg ONCE ONE Administration Sodium Chloride 1,000 mls @ 999 mls/hr 03/13/24 11:39 03/13/24 11:53 Sod Chlor 0.9% 1000ml Bag IV 03/13/24 12:39 999 mls/hr .Q1H1M ONE Administration Ondansetron HCl 4 mg 03/13/24 12:01 03/13/24 12:06 Ondansetron 4mg/2ml Vial IV 03/13/24 12:02 4 mg ONCE ONE Administration ORDERS Category Date Time Status CXR --portable [XR chest portable] Stat Exams 03/13/24 12:01 Completed Acetaminophen Stat Lab 03/13/24 10:53 Completed BNP [NT Pro Brain Natriuretic Pep.] Stat Lab 03/13/24 10:53 Completed CMP [Comprehensive Metabolic Panel] Stat Lab 03/13/24 10:53 Completed Complete Blood Count Auto Diff Stat Lab 03/13/24 10:53 Completed Trop I [Troponin I] Stat Lab 03/13/24 10:53 Completed Troponin I Q3H Lab 03/13/24 15:15 Ordered Troponin I Q3H Lab 03/13/24 18:15 Ordered ECG Data Tracing #1: I reviewed this ECG and interpreted as documented below: (Ventricular rate 59 bpm and sinus bradycardia with narrow complex QRS. PA 147, QRS 85, QTc 452 with normal axis. No obvious acute ischemic change) HEART Score HEART Score: 4 Medical Decision Narrative: In summary, patient is an 88-year-old female PMHx CAD, HTN, HLD, history of dizziness, angina, history of abnormal EKG who presented to the ED via EMS for hypotension that occurred this morning. Patient was recently diagnosed with influenza A yesterday at an outpatient clinic. She is currently taking Tamiflu without adverse reactions. She states that this morning she took her 2 blood pressure medications plus prn clonidine as she was concerned that her blood pressure was too high. Patient states she follows with cardiology here, had 2 recent blood pressure medication changes within the past 2 weeks. She is having difficulty maintaining a stable blood pressure. Patient presents with blood pressure logs. She also adds that this morning she has developed a headache that feels like a regular headache, no red flag symptoms. Patient states her headache is a dull ache in the frontal aspect. Denies any visual changes or other concerning red flag symptoms. Upon my initial assessment, her systolic is 109 with a normal MAP. Patient is alert and oriented. She denies any chest pain but admits to mild shortness of breath, is not short of breath upon presentation. She has no chest wall tenderness, no abdominal tenderness. Abdomen is soft. Initially patient is symptomatically managed with IV fluids, IV acetaminophen and IV Zofran. Differential diagnosis include ACS, dissection, pneumonia, pneumothorax, infectious process, electrolyte abnormality, dehydration, among others. Will proceed with hematologic labs including troponin and BNP, chest x-ray, EKG. Initial workup reviewed by me, CBC remarkable for leukocytosis, WBC 15.7, stable H&H. CMP remarkable for hyponatremia, 131. Potassium 5.5. BUN 26, creatinine 1.20, baseline appears to be 0.90. Troponin negative. BNP normal 201. I considered performing CT of the chest, however I feel there is a low suspicion for pulmonary embolism at this time. Social determinants of health: Patient is elderly and lives alone, poor access to transportation. Patient was able to tolerate p.o. fluids, she was ambulatory with assistance and unsteady which she states is different from her baseline. Given this I feel that the patient would benefit from admission. The case was discussed with hospital medicine regarding management and they will admit the patient to their service for continued evaluation at this time for influenza A, pneumonia and hyponatremia. I was consulted by the ELISEO, and we discussed the complexity of the problems being addressed. I approved the treatment and management plan for this patient's care in the Emergency Department, thus performing a substantive portion of the medical decision making. Kei Carrillo MD Critical Care <Kylie Perry, [employer] - Last Filed: 03/13/24 14:57> Critical Care Time Critical Care Time: No
[2024-03-13 11:51] LABS: MANUAL DIFFERENTIAL MANUAL DIFFERENTIAL (MANUAL DIFF)
[2024-03-13] MEDS: 0.9 % SODIUM CHLORIDE 1000ML 1,000 ML 999 ML IV (11:53)
--- NOTE | 2024-03-13 11:59 | ECG_ITS ---
APPROVED REPORT Exam: Resting ECG HR:59 bpm ECG Measurements Heart Rate 59 AXES KS 147 P 46 QRSd 85 QRS -10 QT 453 T 6 QTc 452 Conclusion Sinus bradycardia Electronically signed by : BETTY CORTEZ, 03/13/2024 15:29:22
--- NOTE | 2024-03-13 12:01 | XR_ITS ---
PROCEDURE INFORMATION: Exam: XR Chest Exam date and time: 03/13/2024 12:17 PM Age: 88 years old Clinical indication: Shortness of breath; Additional info: SOA TECHNIQUE: Imaging protocol: Radiologic exam of the chest. Views: 1 view. COMPARISON: No relevant prior studies available. FINDINGS: Lungs: Streaky airspace opacities in lower lobes could be attributed to atelectasis versus developing pneumonia/aspiration in the appropriate clinical context. There is a left lower lobe pulmonary granuloma. Pleural spaces: Unremarkable. No pleural effusion. No pneumothorax. Heart/Mediastinum: Unremarkable. No cardiomegaly. Bones/joints: Unremarkable. IMPRESSION: Streaky airspace opacities in lower lobes could be attributed to atelectasis versus developing pneumonia/aspiration in the appropriate clinical context.
--- NOTE | 2024-03-13 12:05 | PC.NURSE ---
I rounded on the pt, no new complaints at this time. pt states she is feeling about the same as when she got here. no needs voiced. call hargrove in reach.
[2024-03-13] MEDS: ONDANSETRON 4MG/2ML VIAL 4 MG IV (12:06)
[2024-03-13 12:36] LABS: NT Pro Brain Natriuretic Pep. 201 pg/mL (0-450)
[2024-03-13 12:46] LABS: Acetaminophen 20 ug/ml (10-30)
[2024-03-13 12:48] LABS: Troponin I < 0.01 ng/ml (0.00-0.034)
[2024-03-13 12:58] LABS: Lymphocytes % 10 % (10-50); Monocytes % 2 % (2-9); Neutrophils % 88 % (42-76); Platelet Estimate Normal; RBC Morphology Normal; Total Cells Counted 100
[2024-03-13] MEDS: ACETAMINOPHEN 1,000MG/100ML VIAL 1000 MG IV (13:00)
--- NOTE | 2024-03-13 14:01 | PC.NURSE ---
UPDATED PA THAT MARIE AMAARL WALKED PT STATED SHE WAS LITTLE WOBBLY AND ALSO PT STATED SHE DOES NOT WANNA GO HOME BC SHE LIVES ALONE
--- NOTE | 2024-03-13 15:11 | PC.NURSE ---
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
--- NOTE | 2024-03-13 15:50 | PC.NURSE ---
Gave the patient a ham sandwich and a Sprite.
--- NOTE | 2024-03-13 16:09 | PC.NURSE ---
report called alexandrea mazariegos on second floor
--- NOTE | 2024-03-13 16:16 | PC.NURSE ---
arrived by w/c from ED
[2024-03-13 17:48] LABS: Troponin I < 0.01 ng/ml (0.00-0.034)
[2024-03-13] MEDS: 0.9 % SODIUM CHLORIDE 1000ML 1,000 ML 75 ML IV (17:50)
[2024-03-13 19:22] LABS: Troponin I < 0.01 ng/ml (0.00-0.034)
[2024-03-13] MEDS: OSELTAMIVIR 75MG CAPSULE 75 MG PO (20:00)
--- NOTE | 2024-03-13 20:18 | PC.NURSE ---
Sherman CANTU was paged at this time regarding the patient's concern of taking amlodipine and metoprolol tonight. Her recent blood pressure was 131/90 and her heart rate was 80. Sherman CANTU stated that it will be ok to restart those medications tonight, and he will put in the orders soon.
[2024-03-13] MEDS: AMLODIPINE 5MG TABLET 5 MG PO (20:30)
[2024-03-13] MEDS: METOPROLOL SUCCINATE XL 100MG TABLET 100 MG PO (20:30)
--- NOTE | 2024-03-13 21:47 | P.HP_ITS ---
History of Present Illness *Admission Date: 03/13/24 *Reason for visit:: Weakness *History of present illness: Ignacia Maldonado is a 88-year-old female with a medical history significant for hypertension, diabetes who presents with generalized weakness after testing positive for influenza A. She states that she began having flulike symptoms 2 days ago with malaise, nausea, diarrhea, sore throat. She went to her PCPs office yesterday who tested positive for influenza A, prescribed Tamiflu. However, patient states she continues to have poor appetite, significant generalized weakness, and think she is not able to take care of herself at home. Workup in the ED significant for WBC 15.7, potassium 5.5, creatinine 1.2. CXR does not show acute findings. Case discussed ED provider and decision was made to admit patient for generalized weakness, difficulty taking care for self, in t he setting of influenza A. [facility] Disclaimer: The information contained in this section may have been updated after the patient was seen, as this information can be updated by other users. Medical History Dizziness Dyspnea Gastroesophageal reflux disease Typical angina Abnormal EKG Family history of heart disease Abnormal cardiovascular stress test Family History (Updated 03/13/24 @ 16:43 by Ana Ramirez RN) Other Family history of hypertension Social History (Updated 03/13/24 @ 16:44 by Ana Ramirez RN) Smoking Status: Never smoker second hand exposure: No alcohol intake: never substance use type: denies use current occupational status: retired Travel in the last 8 weeks: Inside the [place] household members: none housing: house current occupational exposures/hazards: No caffeine: Yes Have you lived/traveled outside [place] in past 30 days?: No Contact w/someone who lives/traveled outside US past 30 days?: No Exposure to someone with infectious disease in past 14 days?: No Do you have a fever (greater than 100.4 F or 38 C)?: No Have you tested positive for COVID-19: No Exposed to someone with COVID-19 in past 14 days?: No Do you have a sore throat?: No Do you have a cough?: No Do you have any weakness?: No Are you experiencing any nausea/vomitting?: No Do you have any diarrhea?: No Are you experiencing any unusual bleeding?: No Do you have any muscle aches/pain?: No Do you have any abdominal pain?: No Are you experiencing loss of taste or smell?: No Other Medical History Have you received the Flu Vaccine for this season: Yes Have you received the Pneumonia Vaccine: Yes Meds Home Medications and Allergies Home Medications ?Medication ?Instructions ?Recorded ?Confirmed ?Type amlodipine 5 mg tablet 5 mg PO DAILY 03/13/24 03/13/24 History losartan 100 mg tablet 100 mg PO DAILY 03/13/24 03/13/24 History metoprolol succinate 100 mg 100 mg PO BID 03/13/24 03/13/24 History tablet,extended release 24 hr oseltamivir 75 mg capsule 75 mg PO DAILY 03/13/24 03/13/24 History sitagliptin phosphate 25 mg tablet 25 mg PO DAILY 03/13/24 03/13/24 History (Mina) New Prescriptions to Start Prescriptions: Allergies Allergy/AdvReac Type Severity Reaction Status Date / Time No Known Allergies Allergy Verified 03/13/24 11:57 Exam Data for Last 24 hours Vital signs and Labs for Last 24 Hours: Temp Pulse Resp BP Pulse Ox O2 Del Method 97.8 F 80 18 131/90 96 Room Air 03/13/24 19:21 03/13/24 19:21 03/13/24 19:21 03/13/24 19:21 03/13/24 19:21 03/13/24 21:00 Laboratory Results - last 24 hr 03/13/24 10:53: WBC 15.7 H, RBC 3.94 L, Hgb 11.9 L, Hct 35.9 L, MCV 91.1, MCH 30.2, MCHC 33.1, RDW 13.8, Plt Count 181, MPV 11.4 H, Neut % (Auto) 77.8, Lymph % (Auto) 11.8, [place] % (Auto) 9.2, Eos % (Auto) 0.4, Baso % (Auto) 0.2, Neut # (Auto) 12.3 H, Lymph # (Auto) 1.9, [place] # (Auto) 1.4 H, Eos # (Auto) 0.1, Baso # (Auto) 0.0, Total Counted 100, Neutrophils % (Manual) 88 H, Lymphocytes % (Manual) 10, Monocytes % (Manual) 2, Platelet Estimate Normal, RBC Morphology Normal, Sodium 131 L, Potassium 5.5 H, Chloride 105, Carbon Dioxide 18 L, Anion Gap 13.5, BUN 26 H, Creatinine 1.20 H, Estimated Creat Clear 37, Estimated GFR 42 L, Est GFR ( Amer) 51 L, Glucose 144 H, Calcium 8.6, Total Bilirubin 1.1, AST 41 H, ALT 24, Alkaline Phosphatase 61, Troponin I < 0.01, NT-Pro-B Natriuret Pep 201, Total Protein 6.2 L, Albumin 3.8, Globulin 2.4, Album in/Globulin Ratio 1.6, Acetaminophen 20 03/13/24 16:35: Troponin I < 0.01 03/13/24 18:45: Troponin I < 0.01 I & O for Last 24 hours: Intake & Output 03/10/24 03/11/24 03/12/24 03/13/24 23:59 23:59 23:59 23:59 Intake Total 270 / 270 Output Total 0 / 0 Balance 270 / 270 Weight 69.201 kg Constitutional Constitutional: no acute distress *Routine HEENT Exam Head: Present normocephalic Eye: Present EOMI and PERRL ENT: Present mucous membranes moist *Routine Neck Exam Neck: Present supple; Absent lymphadenopathy *Routine Respiratory Exam Respiratory: Present CTA bilaterally *Routine Cardiovascular Exam Cardiovascular: Present RRR *Routine Abdominal Exam Abdominal: Present soft and normoactive bowel sounds; Absent tenderness *Routine Rectal Exam Rectal:: deferred *Routine Genitalia Exam Genitalia:: deferred *Routine Extremities Exam Extremities: Absent cyanosis, clubbing or edema *Routine Skin Exam Skin: Present warm; Absent rash *Routine Neurological Exam Neurological: Present alert and oriented X3 Assessment and Plan *Assessment and plan (1) Influenza A: Status: Acute Category: Medical Code(s): J10.1 - Influenza due to other identified influenza virus with other respiratory manifestations Plan Ignacia Maldonado is a 88-year-old female with a medical history significant for hypertension, diabetes who presents with generalized weakness after testing positive for influenza A. She states that she began having flulike symptoms 2 d ays ago with malaise, nausea, diarrhea, sore throat. She went to her PCPs office yesterday who tested positive for influenza A, prescribed Tamiflu. However, patient states she continues to have poor appetite, significant generalized weakness, and think she is not able to take care of herself at home. Workup in the ED significant for WBC 15.7, potassium 5.5, creatinine 1.2. CXR does not show acute findings. Case discussed ED provider and decision was made to admit patient for generalized weakness, difficulty taking care for self, in the setting of influenza A. #Influenza A #Generalized weakness #ROMULO ? Progressive generalized weakness since testing positive for influenza A. Has flulike symptoms. ? No focal neurological deficits. ? Has leukocytosis, however no evidence of bacterial infection at this time. Likely demargination from volume contraction in the setting of nausea, poor appetite, diarrhea. Continue monitor. ? Creatinine 1.2, baseline 0.90. ? Tamiflu 30 mg twice daily, renally dosed. ? IV NS at 75 mL/h. #Hypertension ? Resume home amlodipine, metoprolol. #Diabetes ? LDSSI, ACHS glucose checks. DNR/DNI DVT prophylaxis: Lovenox 40 mg
--- NOTE | 2024-03-13 23:37 | PC.NURSE ---
Addendum entered by Dulce Abbott RN 03/14/24 01:42: At this time, patient's oral temperature was rechecked and the reading was 98.8. Addendum entered by Dulce Abbott RN 03/14/24 00:36: Patient's oral temperature was 100.2. Addendum entered by Dulce Abbott RN 03/13/24 23:58: Sherman CANTU was paged at this time regarding the patient's glucose reading. Patient's fingerstick blood glucose was 221. Sliding scale was ordered for the patient; he stated to go ahead and give her an insulin sliding scale dose accordingly now (4 units of Lispro to be given per APR). Sherman CANTU was also notified of the patient's current fever situation and that Tylenol was administered. He was also notified of the patient's home medication request for taking levothyroxine in the morning. Levothyroxine 88 mcg PO daily was added to the patient's home medication reconciliation during this shift (was not entered during admission during the previous shift). Sherman CANTU stated that he will reorder the medication as well. Original Note: At this time, the patient's oral temperature reading was 102.8. Patient had apparent facial flushing, she stated that she felt a little hot, and she requested to have ice water due to the fever and extra thirstiness. Tylenol will be given for her fever per APR. Her top blankets were also removed, and the room temperature was slightly decreased from 74 degrees to 70 degrees. She requested her blood glucose to be checked at this time, for she also stated she was concerned for being hyperglycemic.
[2024-03-13] MEDS: ACETAMINOPHEN 325MG TAB 650 MG PO (23:45)
[2024-03-14] VITALS (8 sets, daily range): BP systolic 106–159; BP diastolic 47–90; PULSE 79–90; RESP 17–20; TEMP 36.7–37.9; O2SAT 91–97; BMI 24.3
[2024-03-14 00:02] LABS: POC Glucose,Bedside 221 (70-110)
[2024-03-14] MEDS: humaLOG 100 UNITS/ML 10ML VIAL (SSI) SUBCUT ×2 (00:10→21:02)
--- NOTE | 2024-03-14 05:44 | PC.NURSE ---
Patient is alert and oriented x4. Patient was observed to have both wakeful periods and resting periods (respirations even and unlabored on room air) throughout the night. She has not had any complaints this shift other than feeling hot and some extra thirstiness (see prior note). These problems (fever, hyperglycemia) were addressed accordingly. Thus far, patient is afebrile and her fingerstick glucose this morning was 127 (for ACHS check). Patient reported having an intermittently, productive cough this shift. During auscultation of her lungs, diminished lung sounds could be heard. Auscultation of her heart and bowels were within normal findings. With ambulation in room/to the bathroom, patient required x1 assistance with the transfer up from the bed, but she ambulated fairly well with standby assistance afterwards; she was given a walker to use. Scheduled medications were administered per MAR this shift. Normal saline infusion continues to run at 75 mL/hr. Patient's blood pressure has fluctuated during this shift; other vital signs remain stable thus far. At this time, the patient is resting supine in bed. No acute changes noted at this time. Call light within reach.
[2024-03-14 06:51] LABS: Basophils % 0.2 % (0.1-2.0); Eosinophils % 0.2 % (0.1-12.0); Hematocrit 37.2 % (37.0-47.0); Hemoglobin 12.4 g/dL (12.2-16.2); Lymphocytes # 1.9 K/mm3 (0.7-4.5); Lymphocytes % 10.9 % (10-50); Mean Corpuscular HGB Conc 33.3 g/dL (31.8-35.4); Mean Corpuscular Hemoglobin 30.5 pg (27.0-31.2); Mean Corpuscular Volume 91.4 fl (81-99); Mean Platelet Volume 10.7 fl (7.4-10.4); Monocytes # 1.3 K/mm3 (0.1-1.0); Monocytes % 7.4 % (1.7-9.3); Neutrophils # 13.8 K/mm3 (1.8-7.8); Neutrophils % 80.7 % (37.0-80.0); Platelet Count 197 K/mm3 (142-424); Red Blood Count 4.07 M/mm3 (4.20-5.40); Red Cell Distribution Width 13.9 % (11.5-17.5); White Blood Count 17.1 K/mm3 (4.8-10.8)
[2024-03-14 07:00] LABS: MANUAL DIFFERENTIAL MANUAL DIFFERENTIAL (MANUAL DIFF)
[2024-03-14 07:09] LABS: Albumin Level 3.5 g/dl (3.5-5.0); Chloride 109 mmol/L (98-107); Sodium 136 mmol/L (136-145)
[2024-03-14 07:10] LABS: Potassium 3.8 mmoL/L (3.5-5.1)
[2024-03-14 07:12] LABS: Alanine Aminotransferase 20 U/L (12-78); Albumin/Globulin Ratio 1.6 (1.1-1.8); Anion Gap 10.8 mEq/L (5-15); Aspartate Amino Transferase 28 U/L (14-36); Blood Urea Nitrogen 15 mg/dl (7-17); Carbon Dioxide 20 mmol/L (22.0-30.0); Creatinine Clearance Estimated 44 mL/min (50-200); Estimated Glomerular Filt Rate 59 ml/min (>60); GFR (African American) 72 ML/MIN (>60); Globulin 2.2 g/dL (1.3-3.2); Total Protein,Serum 5.7 g/dl (6.3-8.2)
[2024-03-14 07:13] LABS: Alkaline Phosphatase 86 U/L (38-126); Bilirubin,Total 0.6 mg/dl (0.2-1.3); Calcium 8.5 mg/dl (8.4-10.2); Glucose 137 mg/dl (74-100); Magnesium 1.7 mg/dl (1.6-2.3)
[2024-03-14 08:52] LABS: NT Pro Brain Natriuretic Pep. 889 pg/mL (0-450)
[2024-03-14] MEDS: LEVOTHYROXINE 88MCG (0.088MG) TAB 88 MCG PO (08:56)
[2024-03-14] MEDS: ENOXAPARIN 40MG/0.4ML SYRINGE 40 MG SUBCUT (08:56)
[2024-03-14] MEDS: METOPROLOL SUCCINATE XL 100MG TABLET 100 MG PO (08:56)
[2024-03-14] MEDS: AMLODIPINE 5MG TABLET 5 MG PO (08:57)
[2024-03-14] MEDS: OSELTAMIVIR PHOSPHATE 6MG/ML ORAL SUSP 60ML 30 MG PO ×2 (08:57→20:06)
[2024-03-14] MEDS: CEFTRIAXONE 1 GM 1 GM in 0.9 % SODIUM CHLORIDE 50 ML IV (08:57)
[2024-03-14 09:01] LABS: Lymphocytes % 13 % (10-50); Monocytes % 3 % (2-9); Neutrophils % 84 % (42-76); Platelet Estimate Normal; RBC Morphology Normal; Total Cells Counted 100
--- NOTE | 2024-03-14 09:39 | HMH.PHAINT1 ---
Pharmacy Intervention Comments: MEDICATION RECONCILIATION COMPLETE USING EXTERNAL PHARMACY FILL HISTORY AND RECENT MD OFFICE VISIT NOTE.
[2024-03-14] MEDS: MAGNESIUM SULFATE IN WATER 2 GM/50 ML PIGGYBACK IV ×2 (09:41→10:34)
[2024-03-14] MEDS: ACETAMINOPHEN 325MG TAB 650 MG PO (09:48)
[2024-03-14] MEDS: ONDANSETRON 4MG/2ML VIAL 4 MG IV (09:50)
[2024-03-14] MEDS: FUROSEMIDE 40MG/4ML VIAL 40 MG IV (10:34)
[2024-03-14 10:47] LABS: POC Glucose,Bedside 143 (70-110)
[2024-03-14] MEDS: SODIUM CHLORIDE 3% 15ML NEB 3 ML IH (11:04)
[2024-03-14] MEDS: AZITHROMYCIN 500 MG in 0.9 % SODIUM CHLORIDE 250 ML 250 MG IV (11:24)
[2024-03-14] MEDS: JANUVIA 25 MG 1 EACH PO (11:24)
[2024-03-14] MEDS: ASPIRIN EC 81MG TABLET 81 MG PO (15:01)
--- NOTE | 2024-03-14 15:43 | P.PN_ITS ---
Subjective *Date: 03/14/24 *Time: 15:43 Interval history: Patient states she feels no better than yesterday, will start antibiotics to cover for commune acquired pneumonia. Encouraged fluid, oral intake. Exam Data for Last 24 hours Vital signs and Labs for Last 24 Hours: Temp Pulse Resp BP Pulse Ox O2 Del Method 99.8 F H 79 18 122/90 97 Room Air 03/14/24 10:39 03/14/24 11:05 03/14/24 11:05 03/14/24 08:00 03/14/24 08:00 03/14/24 13:00 Laboratory Results - last 24 hr 03/13/24 16:35: Troponin I < 0.01 03/13/24 18:45: Troponin I < 0.01 03/13/24 23:47: POC Glucose 221 H 03/14/24 06:02: WBC 17.1 H, RBC 4.07 L, Hgb 12.4, Hct 37.2, MCV 91.4, MCH 30.5, MCHC 33.3, RDW 13.9, Plt Count 197, MPV 10.7 H, Neut % (Auto) 80.7 H, Lymph % (Auto) 10.9, [place] % (Auto) 7.4, Eos % (Auto) 0.2, Baso % (Auto) 0.2, Neut # (Auto) 13.8 H, Lymph # (Auto) 1.9, [place] # (Auto) 1.3 H, Eos # (Auto) 0.0, Baso # (Auto) 0.0, Total Counted 100, Neutrophils % (Manual) 84 H, Lymphocytes % (Manual) 13, Monocytes % (Manual) 3, Platelet Estimate Normal, RBC Morphology Normal, Sodium 136, Potassium 3.8 D, Chloride 109 H, Carbon Dioxide 20 L, Anion Gap 10.8, BUN 15 D, Creatinine 0.90 D, Estimated Creat Clear 44, Estimated GFR 59, Est GFR ( Amer) 72 D, Glucose 137 H, Calcium 8.5, Magnesium 1.7, Total Bilirubin 0.6, AST 28 D, ALT 20, Alkaline Phosphatase 86, NT-Pro-B Natriuret Pep 889 H, Total Protein 5.7 L, Albumin 3.5, Globulin 2.2, Album in/Globulin Ratio 1.6 03/14/24 10:33: POC Glucose 143 H I & O for Last 24 hours: Intake & Output 03/11/24 03/12/24 03/13/24 03/14/24 23:59 23:59 23:59 23:59 Intake Total 270 / 1050 1290 / 1290 Output Total 0 / 0 0 / 0 Balance 270 / 1050 1290 / 1290 Weight 69.201 kg 70.443 kg Microbiology Reports for the Last 24 Hours: Microbiology 03/14/24 11:30 Sputum - Expectorated Sputum Gram Stain - Final Constitutional Constitutional: no acute distress *Routine HEENT Exam Head: Present normocephalic Eye: Present EOMI and PERRL ENT: Present mucous membranes moist *Routine Neck Exam Neck: Present supple; Absent lymphadenopathy *Routine Respiratory Exam Respiratory: Present CTA bilaterally *Routine Cardiovascular Exam Cardiovascular: Present RRR *Routine Abdominal Exam Abdominal: Present soft and normoactive bowel sounds; Absent tenderness *Routine Extremities Exam Extremities: Absent cyanosis, clubbing or edema *Routine Skin Exam Skin: Present warm; Absent rash *Routine Neurological Exam Neurological: Present alert and oriented X3 Assessment and Plan *Assessment and plan (1) Influenza A: Status: Acute Category: Medical Code(s): J10.1 - Influenza due to other identified influenza virus with other respiratory manifestations Plan Ignacia Maldonado is a 88-year-old female with a medical history significant for hypertension, diabetes who presents with generalized weakness after testing positive for influenza A. She states that she began having flulike symptoms 2 days ago with malaise, nausea, diarrhea, sore throat. She went to her PCPs office yesterday who tested positive for influenza A, prescribed Tamiflu. However, patient states she continues to have poor appetite, significant generalized weakness, and think she is not able to take care of herself at home. Workup in the ED significant for WBC 15.7, potassium 5.5, creatinine 1.2. CXR does not show acute findings. Case discussed ED provider and decision was made to admit patient for generalized weakness, difficulty taking care for self, in the setting of influenza A. #Community-acquired pneumonia #Influenza A #Generalized weakness #ROMULO ? Progressive generalized weakness since testing positive for influenza A. Has flulike symptoms. ? CXR more likely represents multifocal pneumonia, WBC bumped from 15-17 today. ? Started ceftriaxone, azithromycin day 1 ? Creatinine improved to 0.90 with IV fluids overnight ? Tamiflu 30 mg twice daily, renally dosed. ? IV NS at 75 mL/h. ? PT/OT consulted, pending recommendations. #Hypertension ? Resume home amlodipine, metoprolol. #Diabetes ? LDSSI, ACHS glucose checks. DNR/DNI DVT prophylaxis: Lovenox 40 mg
[2024-03-14] MEDS: 0.9 % SODIUM CHLORIDE 1000ML 500 ML IV (16:59)
[2024-03-14 17:11] LABS: POC Glucose,Bedside 159 (70-110)
--- NOTE | 2024-03-14 17:57 | PC.NURSE ---
pt resting supine in bed with grandson at bedside. a&ox4. pt has been slightly anxious this shift regarding medications, but is content now that home meds have been reordered. sputum collected and sent to lab, as well as MRSA swab. no complaints of pain or soa this shift. tolerating ra well with sats >90%. abx given per apr. pt has had little to no appetite, stating she just isnt hungry. no needs at this time. call light within reach.
[2024-03-14] MEDS: PANTOPRAZOLE 40MG TABLET 40 MG PO (20:06)
[2024-03-14 20:22] LABS: POC Glucose,Bedside 171 (70-110)
--- NOTE | 2024-03-14 21:16 | PC.NURSE ---
Previous IV (20G in left antecubital) started to leak around the dressing, and the catheter piece was slightly pulled out upon assessment. Normal saline infusion was stopped and a new, 22G IV was inserted into the left forearm by me at this time. Normal saline infusion was resumed after IV access was achieved.
[2024-03-15] VITALS: BP 132/63; PULSE 84; RESP 17; TEMP 37.2; O2SAT 91
--- NOTE | 2024-03-15 03:33 | PC.NURSE ---
Patient is alert and oriented x4. Patient was observed to have eyes closed, respirations even and unlabored on room air, and no apparent distress for the majority of the night. Upon assessment, patient explained that she has not had a very good day and continues to feel unwell. She has had a couple coughing fits this shift, of which her reported sputum production has been difficult for her to expel (described as thick ). Patient was educated about incentive spirometer use and was provided one at the bedside, in hopes to help with expansion and health of her lungs. During auscultation, diminished lung sounds could be heard; heart and bowels were within normal findings. She reported having a minimal appetite this shift but was able to suffice in eating peanut butter and crackers at bedtime. Patient continues to ambulate with supervision and a walker with a satisfactory gait. Scheduled medications administered per MAR this shift. Normal saline infusion continues to run at 75 mL/hr. Patient's vital signs have remained stable this shift; afebrile. ACHS glucose fingersticks performed this shift. At this time, the patient is resting supine in bed. Call light within reach. Droplet precautions remain ongoing per Influenza A.
[2024-03-15 04:00] VITALS: BP 131/65; PULSE 88; RESP 18; TEMP 37.4; O2SAT 91; BMI 24.6
[2024-03-15] MEDS: 0.9 % SODIUM CHLORIDE 1000ML 1,000 ML 75 ML IV (04:05)
[2024-03-15 05:58] LABS: POC Glucose,Bedside 171 (70-110)
[2024-03-15] MEDS: humaLOG 100 UNITS/ML 10ML VIAL (SSI) SUBCUT (06:22)
[2024-03-15] MEDS: LEVOTHYROXINE 88MCG (0.088MG) TAB 88 MCG PO (06:22)
[2024-03-15 07:28] LABS: Alanine Aminotransferase 19 U/L (12-78); Albumin Level 2.9 g/dl (3.5-5.0); Albumin/Globulin Ratio 1.2 (1.1-1.8); Alkaline Phosphatase 87 U/L (38-126); Anion Gap 8.6 mEq/L (5-15); Aspartate Amino Transferase 25 U/L (14-36); Bilirubin,Total 0.4 mg/dl (0.2-1.3); Blood Urea Nitrogen 11 mg/dl (7-17); Calcium 8.3 mg/dl (8.4-10.2); Carbon Dioxide 20 mmol/L (22.0-30.0); Chloride 110 mmol/L (98-107); Creatinine Clearance Estimated 45 mL/min (50-200); Estimated Glomerular Filt Rate 68 ml/min (>60); GFR (African American) 82 ML/MIN (>60); Globulin 2.4 g/dL (1.3-3.2); Glucose 156 mg/dl (74-100); Magnesium 2.1 mg/dl (1.6-2.3); Potassium 3.6 mmoL/L (3.5-5.1); Sodium 135 mmol/L (136-145); Total Protein,Serum 5.3 g/dl (6.3-8.2)
[2024-03-15 07:29] LABS: Basophils % 0.2 % (0.1-2.0); Eosinophils # 0.1 K/mm3 (0.0-0.4); Eosinophils % 0.5 % (0.1-12.0); Hemoglobin 11.3 g/dL (12.2-16.2); Lymphocytes # 1.4 K/mm3 (0.7-4.5); Lymphocytes % 8.7 % (10-50); Mean Corpuscular HGB Conc 33.2 g/dL (31.8-35.4); Mean Corpuscular Hemoglobin 30.2 pg (27.0-31.2); Mean Corpuscular Volume 90.9 fl (81-99); Mean Platelet Volume 10.9 fl (7.4-10.4); Monocytes # 1.1 K/mm3 (0.1-1.0); Neutrophils % 82.8 % (37.0-80.0); Platelet Count 191 K/mm3 (142-424); Red Blood Count 3.74 M/mm3 (4.20-5.40); Red Cell Distribution Width 14.2 % (11.5-17.5); White Blood Count 15.7 K/mm3 (4.8-10.8)
[2024-03-15 07:35] LABS: MANUAL DIFFERENTIAL MANUAL DIFFERENTIAL (MANUAL DIFF)
[2024-03-15 07:54] LABS: Thyroid Stimulating Hormone 2.09 uIU/mL (0.465-4.68)
[2024-03-15 07:59] LABS: Total Iron Binding Capacity 177 ug/dL (265-497)
[2024-03-15 08:00] VITALS: BP 121/52; PULSE 88; RESP 19; TEMP 37.4; O2SAT 96
[2024-03-15 08:08] LABS: Free T4 (Free Thyroxine) 1.38 ng/dl (0.78-2.19)
[2024-03-15 08:39] LABS: Vitamin B12 350 pg/mL (239-931)
[2024-03-15 08:59] LABS: Folate 9.86 ng/mL
[2024-03-15 09:03] LABS: Hemoglobin A1C 7.3 % (4.0-6.0)
[2024-03-15] MEDS: DOXYCYCLINE HYCLATE 100 MG in 0.9 % SODIUM CHLORIDE 250 ML 166.667 MG IV (09:26)
[2024-03-15] MEDS: ENOXAPARIN 40MG/0.4ML SYRINGE 40 MG SUBCUT (09:26)
[2024-03-15] MEDS: AMLODIPINE 5 MG 1 EACH PO (09:26)
[2024-03-15] MEDS: METOPROLOL SUCCINATE XL 100MG TABLET 100 MG PO (09:26)
[2024-03-15] MEDS: ASPIRIN EC 81MG TABLET 81 MG PO (09:26)
[2024-03-15] MEDS: OSELTAMIVIR PHOSPHATE 6MG/ML ORAL SUSP 60ML 30 MG PO (09:31)
[2024-03-15 09:33] LABS: Iron 23 ug/dL (37-170)
[2024-03-15 10:05] LABS: Lymphocytes % 14 % (10-50); Monocytes % 6 % (2-9); Neutrophils % 80 % (42-76); Platelet Estimate Normal; RBC Morphology Normal; Total Cells Counted 100
[2024-03-15 10:09] LABS: Ferritin 421 ng/ml (11.1-264)
--- NOTE | 2024-03-15 10:14 | HMH.OTEV ---
OT Inpatient Evaluation Rehab OT IP Evaluation Start: 03/14/24 15:46 Freq: ONCE Status: Active Protocol: Document 03/15/24 09:55 SONIA (Rec: 03/15/24 10:13 SONIA [id number]) Rehab OT IP Assessment Subjective History Ignacia Maldonado is a 88-year- old female with a medical history significant for hypertension, diabetes who presents with generalized weakness after testing positive for influenza A. She states that she began having flulike symptoms 2 days ago with malaise, nausea, diarrhea , sore throat. She went to her PCPs office yesterday who tested positive for influenza A, prescribed Tamiflu. However, patient states she continues to have poor appetite, significant generalized weakness, and think she is not able to take care of herself at home. Workup in the ED significant for WBC 15.7, potassium 5.5, creatinine 1.2. CXR does not show acute findings. Case discussed ED provider and decision was made to admit patient for generalized weakness, difficulty taking care for self, in the setting of influenza A. Lives alone. Independent with ADLs and fx'l mobility. Continues to drive. Subjective I can get up. Analysis Patient's ADLs and fx 'l mobility during initial evaluation. Patient completed tasks independently with usage of RW. Objective Patient Orientation Person,Name,Age Right Upper Extremity Gross ROM WFL Left Upper Extremity Gross ROM WFL Bed Mobility bed mobility - supine/sit Assist Level Independent Transfer Training Sit/Stand/Step Transfer Assist Level Independent Chair Transfer Ability Independent Chair Transfer Technique Sit to/from Ambulatory Rehab OT IP prob,goals,plan Problems Date of Evaluation: 03/15/24 OT IP Problems Bed Mobility,Transfers,Balance ,Self care,Safety Rehab Potential Rehab Potential Innapropriate for Skilled Therapy Equipment Needs Assistive Devices Rolling / Wheeled Walker Plan OT intervention Plan Therapeutic Exercise Discharge Plan OT Discharge Plan Recommend patient return home after medical d/c. Patient appears to be at baseline. Eval Complexity Eval Charge Codes 82012 - Low Complexity PHYSICIAN CERTIFICATION: I certify the specified therapy services for Ignacia Maldonado are required, authorized, and reviewed every 30 days.
[2024-03-15] MEDS: CEFTRIAXONE 1 GM 1 GM in 0.9 % SODIUM CHLORIDE 50 ML IV (11:37)
[2024-03-15 11:50] LABS: POC Glucose,Bedside 144 (70-110)
--- NOTE | 2024-03-15 12:09 | P.DS_ITS ---
General Admission date:: 03/13/24 HPI HPI HPI: Ignacia Maldonado is a 88-year-old female with a medical history significant for hypertension, diabetes who presents with generalized weakness after testing positive for influenza A. She states that she began having flulike symptoms 2 days ago with malaise, nausea, diarrhea, sore throat. She went to her PCPs office yesterday who tested positive for influenza A, prescribed Tamiflu. Howev er, patient states she continues to have poor appetite, significant generalized weakness, and think she is not able to take care of herself at home. Workup in the ED significant for WBC 15.7, potassium 5.5, creatinine 1.2. CXR does not show acute findings. Case discussed ED provider and decision was made to admit patient for generalized weakness, difficulty taking care for self, in the setting of influenza A. Hospital Course Hospital Course Hospital Course: Ignacia Maldonado is a 88-year-old female with a medical history significant for hypertension, diabetes who presents with generalized weakness after testing positive for influenza A. She states that she began having flulike symptoms 2 days ago with malaise, nausea, diarrhea, sore throat. She went to her PCPs office yesterday who tested positive for influenza A, prescribed Tamiflu. However, patient states she continues to have poor appetite, significant generalized weakness, and think she is not able to take care of herself at home. Workup in the ED significant for WBC 15.7, potassium 5.5, creatinine 1.2. CXR does not show acute findings. Case discussed ED provider and decision was made to admit patient for generalized weakness, difficulty taking care for self, in the setting of influenza A. #Community-acquired pneumonia #Sepsis #Influenza A #Generalized weakness #ROMULO ? Progressive generalized weakness since testing positive for influenza A a few days prior to admission. Has flulike symptoms. ? CXR shows bibasilar pneumonia. WBC bumped to 17, with fevers up to 102.8. ? Clinically improved with ceftriaxone, doxycycline, Tamiflu, IV fluid resuscitation. Initial creatinine 1.2, improved to 0.80. ? Discharged with cefdinir, doxycycline for 3 more days. Finish home Tamiflu for 3 more days. ? PT/OT consulted, did not recommend rehab needs. #Hypertension ? Continue home amlodipine, metoprolol. #Diabetes ? Continue home regimen. Hemoglobin A1c 7.3 on admission. Total time spent on discharge: 31 minutes on chart review, counseling, documentation, and direct care with patient. Exam Data for Last 24 hours Vital signs and Labs for Last 24 Hours: Temp Pulse Resp BP Pulse Ox O2 Del Method 99.3 F 88 19 121/52 L 96 Room Air 03/15/24 08:00 03/15/24 08:00 03/15/24 08:00 03/15/24 08:00 03/15/24 08:00 03/15/24 09:00 Laboratory Results - last 24 hr 03/14/24 17:00: POC Glucose 159 H 03/14/24 20:10: POC Glucose 171 H 03/15/24 05:50: POC Glucose 171 H 03/15/24 06:30: WBC 15.7 H, RBC 3.74 L, Hgb 11.3 L, Hct 34.0 L, MCV 90.9, MCH 30.2, MCHC 33.2, RDW 14.2, Plt Count 191, MPV 10.9 H, Neut % (Auto) 82.8 H, Lymph % (Auto) 8.7 L, Hardeman % (Auto) 7.0, Eos % (Auto) 0.5, Baso % (Auto) 0.2, Neut # (Auto) 13.0 H, Lymph # (Auto) 1.4, Hardeman # (Auto) 1.1 H, Eos # (Auto) 0.1, Baso # (Auto) 0.0, Total Counted 100, Neutrophils % (Manual) 80 H, Lymphocytes % (Manual) 14, Monocytes % (Manual) 6, Platelet Estimate Normal, RBC Morphology Normal, Sodium 135 L, Potassium 3.6, Chloride 110 H, Carbon Dioxide 20 L, Anion Gap 8.6, BUN 11 D, Creatinine 0.80, Estimated Creat Clear 45, Estimated GFR 68, Est GFR ( Amer) 82, Glucose 156 H, Hemoglobin A1c 7.3 H, Calcium 8.3 L, Magnesium 2.1 D, Iron 23 L, TIBC 177 L, Iron Saturation 12.75673 L, Ferritin 421 H, Total Bilirubin 0.4, AST 25, ALT 19, Alkaline Phosphatase 87, Total Protein 5.3 L, Albumin 2.9 L D, Globulin 2.4, Albumin/Globulin Ratio 1.2, Vitamin B12 350, Folate 9.86, TSH 2.09, Free T4 1.38 03/15/24 11:39: POC Glucose 144 H I & O for Last 24 hours: Intake & Output 03/12/24 03/13/24 03/14/24 03/15/24 23:59 23:59 23:59 23:59 Intake Total 270 / 1050 1410 / 2472 1062 / 1062 Output Total 0 / 0 0 / 0 0 / 0 Balance 270 / 1050 1410 / 2472 1062 / 1062 Weight 69.201 kg 70.443 kg 71.214 kg Microbiology Reports for the Last 24 Hours: Microbiology 03/14/24 11:30 Sputum - Expectorated Sputum Gram Stain - Final Constitutional Constitutional: no acute distress *Routine HEENT Exam Head: Present normocephalic Eye: Present EOMI and PERRL ENT: Present mucous membranes moist *Routine Neck Exam Neck: Present supple; Absent lymphadenopathy *Routine Respiratory Exam Respiratory: Present CTA bilaterally *Routine Cardiovascular Exam Cardiovascular: Present RRR *Routine Abdominal Exam Abdominal: Present soft and normoactive bowel sounds; Absent tenderness *Routine Extremities Exam Extremities: Absent cyanosis, clubbing or edema *Routine Skin Exam Skin: Present warm; Absent rash *Routine Neurological Exam Neurological: Present alert and oriented X3 Results Data Completed and Pending Labs on day of discharge: Labs from last 24 hours 03/15/24 03/15/24 03/15/24 11:39 06:30 05:50 WBC 15.7 H RBC 3.74 L Hgb 11.3 L Hct 34.0 L MCV 90.9 MCH 30.2 MCHC 33.2 RDW 14.2 Plt Count 191 MPV 10.9 H Neut % (Auto) 82.8 H Lymph % (Auto) 8.7 L Hardeman % (Auto) 7.0 Eos % (Auto) 0.5 Baso % (Auto) 0.2 Neut # (Auto) 13.0 H Lymph # (Auto) 1.4 Hardeman # (Auto) 1.1 H Eos # (Auto) 0.1 Baso # (Auto) 0.0 Total Counted 100 Neutrophils % (Manual) 80 H Lymphocytes % (Manual) 14 Monocytes % (Manual) 6 Platelet Estimate Normal RBC Morphology Normal Sodium 135 L Potassium 3.6 Chloride 110 H Carbon Dioxide 20 L Anion Gap 8.6 BUN 11 D Creatinine 0.80 Estimated Creat Clear 45 Estimated GFR 68 Est GFR ( Amer) 82 Glucose 156 H POC Glucose 144 H 171 H Hemoglobin A1c 7.3 H Calcium 8.3 L Magnesium 2.1 D Iron 23 L TIBC 177 L Iron Saturation 12.41593 L Ferritin 421 H Total Bilirubin 0.4 AST 25 ALT 19 Alkaline Phosphatase 87 Total Protein 5.3 L Albumin 2.9 L D Globulin 2.4 Albumin/Globulin Ratio 1.2 Vitamin B12 350 Folate 9.86 TSH 2.09 Free T4 1.38 03/14/24 03/14/24 20:10 17:00 WBC RBC Hgb Hct MCV MCH MCHC RDW Plt Count MPV Neut % (Auto) Lymph % (Auto) Hardeman % (Auto) Eos % (Auto) Baso % (Auto) Neut # (Auto) Lymph # (Auto) Hardeman # (Auto) Eos # (Auto) Baso # (Auto) Total Counted Neutrophils % (Manual) Lymphocytes % (Manual) Monocytes % (Manual) Platelet Estimate RBC Morphology Sodium Potassium Chloride Carbon Dioxide Anion Gap BUN Creatinine Estimated Creat Clear Estimated GFR Est GFR ( Amer) Glucose POC Glucose 171 H 159 H Hemoglobin A1c Calcium Magnesium Iron TIBC Iron Saturation Ferritin Total Bilirubin AST ALT Alkaline Phosphatase Total Protein Albumin Globulin Albumin/Globulin Ratio Vitamin B12 Folate TSH Free T4 DS: Diagnosis Discharge Diagnosis (1) Influenza A: Status: Acute Code(s): J10.1 - Influenza due to other identified influenza virus with other respiratory manifestations Meds Home Medications and Allergies Home Medications ?Medication ?Instructions ?Recorded ?Confirmed ?Type amlodipine 5 mg tablet 5 mg PO DAILY 03/13/24 03/13/24 History levothyroxine 88 mcg tablet 88 mcg PO DAILYDM 03/13/24 03/14/24 History losartan 100 mg tablet 100 mg PO DAILY 03/13/24 03/13/24 History sitagliptin phosphate 25 mg tablet 25 mg PO DAILY 03/13/24 03/13/24 History (Mina) aspirin 81 mg tablet,delayed 81 mg PO DAILY 03/14/24 03/14/24 History release carvedilol 25 mg tablet 25 mg PO BID 03/14/24 03/14/24 History clonidine HCl 0.2 mg tablet 0.2 mg PO BIDP PRN SYSTOLIC > 170 03/14/24 03/14/24 History conjugated estrogens 0.625 mg/gram 0.5 applic vaginal .TWICE WEEKLY 03/14/24 03/14/24 History vaginal cream (Premarin) omeprazole 40 mg capsule,delayed 40 mg PO DAILY 03/14/24 03/14/24 History release spironolactone 25 mg tablet 25 mg PO PM 03/14/24 03/14/24 History cefdinir 300 mg capsule 300 mg PO BID 3 days #6 caps 03/15/24 Rx doxycycline monohydrate 100 mg 100 mg PO BID 3 days #6 caps 03/15/24 Rx capsule oseltamivir 75 mg capsule 75 mg PO BID 2 days #0 caps 03/15/24 03/14/24 Rx New Prescriptions to Start Prescriptions: cefdinir Geovani,Quentin doxycycline monohydrate Geovani,Quentin Allergies Allergy/AdvReac Type Severity Reaction Status Date / Time No Known Allergies Allergy Verified 03/13/24 11:57 Discharge Plan Disposition Patient Disposition: Home, Self-Care Condition: Fair Follow up Plan Follow up with: Coni Sena [Primary Care Provider] - 03/19/24 10:00 am Prescriptions/Medication Reconciliation: New cefdinir 300 mg capsule 300 mg PO BID 3 Days Qty: 6 0RF doxycycline monohydrate 100 mg capsule 100 mg PO BID 3 Days Qty: 6 0RF Continued Januvia 25 mg Tablet 25 mg PO DAILY levothyroxine 88 mcg tablet 88 mcg PO DAILYDM Patient Comments: TAKE ONE TABLET BY MOUTH EVERY MORNING carvedilol 25 mg tablet 25 mg PO BID omeprazole 40 mg capsule,delayed release(DR/EC) 40 mg PO DAILY clonidine HCl 0.2 mg tablet 0.2 mg PO BIDP PRN (Reason: SYSTOLIC > 170) Patient Comments: take 1 tablet by mouth twice daily as needed for systolic blood pressure greater than 170 aspirin 81 mg Tablet,Delayed Release (Dr/Ec) 81 mg PO DAILY Premarin 0.625 mg/gram cream 0.5 applic vaginal .TWICE WEEKLY Patient Comments: Insert 0.5 gram using applicatorful twice a week by vaginal route. oseltamivir 75 mg capsule 75 mg PO BID 2 Days Qty: 0 0RF Patient Comments: FOR 5 DAYS, FILLED 03/12/24. Held amlodipine 5 mg tablet 5 mg PO DAILY Hold Instructions: Resume on 03/29/24. Your blood pressures were normal without this medication, please talk to your PCP before restarting this medication. Patient Comments: TAKE 1 TABLET 1 TIME EACH DAY IN THE EVENING losartan 100 mg tablet 100 mg PO DAILY Hold Instructions: Resume on 03/29/24. Your blood pressures were normal without this medication, please talk to your PCP before restarting this medication. Patient Comments: TAKE 1 TABLET 1 TIME EACH DAY IN THE MORNING spironolactone 25 mg tablet 25 mg PO PM Hold Instructions: Resume on 03/29/24. Your blood pressures were normal without this medication, please talk to your PCP before restarting this medication. Patient Comments: TAKE 1 TABLET 1 TIME EACH DAY IN THE EVENING Problem Reconciliation Problems Reviewed?: Yes Patient Discharge Instructions Patient Instructions: Pneumonia--Adult, Influenza, Acute Kidney Injury, DI for Muscle Weakness, Hypokalemia Print Language: [place] Providers Primary Care Provider: Coni Sena Admoleksandr Provider: Quentin Olivo Attending Provider: Quentin Olivo
--- NOTE | 2024-03-15 12:32 | HMH.PTEV ---
Physical Therapy Evaluation Rehab PT IP Evaluation Start: 03/14/24 15:46 Freq: ONCE Status: Active Protocol: Document 03/15/24 12:25 VALENTINO (Rec: 03/15/24 12:32 VALENTINO [id number]) Subjective/History History History Per H&P: Ignacia Maldonado is a 88-year-old female with a medical history significant for hypertension, diabetes who presents with generalized weakness after testing positive for influenza A. She states that she began having flulike symptoms 2 days ago with malaise, nausea, diarrhea , sore throat. She went to her PCPs office yesterday who tested positive for influenza A, prescribed Tamiflu. However, patient states she continues to have poor appetite, significant generalized weakness, and think she is not able to take care of herself at home. Workup in the ED significant for WBC 15.7, potassium 5.5, creatinine 1.2. CXR does not show acute findings. Case discussed ED provider and decision was made to admit patient for generalized weakness, difficulty taking care for self, in the setting of influenza A. Subjective Subjective Pt reports she was living alone and was IND with all mobility. New diagnosis of cancer in past 12 No months? Rehab PT IP Eval Objective Appearance Patient Behavior Appropriate,Cooperative Patient Orientation Person,Place Difficulty following instructions none Speech Pattern Clear Ambulation Patient Able to Ambulate Yes Ambulation Observation IP General Gait Pattern Observation No Deviations/Normal Ambulation Distance (feet) 20 Ambulation Assistive Device None Ambulation Ability Supervision/Stand by Balance Ability to Arise Able, uses arms to help Sitting Balance Steady, safe Standing Balance Steady, wide stance Dynamic Sitting Balance Ability Good Dynamic Standing Balance Ability Good Transfers Bed Transfer Ability Independent Sit to Stand Bed Transfer Ability Independent Sit to Stand Chair Transfer Ability Independent Rehab PT IP prob,goals,plan Problems Date of Evaluation: 03/15/24 Rehab Potential Rehab Potential Innapropriate for Skilled Therapy Discharge Plan PT Discharge Plan Pt most appropriate to d/c home. Skilled acute care PT not needed at this time d/t pt being IND/SUP for mobility. Eval Complexity Eval Charge Codes 34159 - Moderate Complexity PHYSICIAN CERTIFICATION: I certify the specified therapy services for Ignacia Maldonado are required, authorized, and reviewed every 30 days.
[2024-03-15 12:48] LABS: Microscopic, Urine URINE MICROSCOPIC (MICROSCOPIC)
[2024-03-15 12:51] LABS: Appearance,Urine CLEAR (Clear); Bilirubin,Urine Negative (Negative); Blood, Urine TRACE-I (Negative); Color,Urine YELLOW (Yellow); Glucose,Urine (UA) Negative (Negative); Ketones,Urine Negative (Negative); Leukocyte Esterase,Urine Negative (Negative); Nitrate,Urine Negative (Negative); Protein,Urine 1+ (Negative); Specific Gravity, Urine >= 1.030 (1.005-1.030); Urobilinogen,Urine 0.2 EU/dl (0.2)
[2024-03-15 13:43] LABS: Bacteria,Urine Trace /lpf
--- NOTE | 2024-03-16 10:08 | SW/DCPLANNER ---
Spoke with patient on the phone. Patient stated that she is doing very well. Patient stated that she was not aware of her upcoming appointment with her primary care provider. Patient stated that her niece is picking up her new medicine from [facility] [employer]. Patient stated that she is not going to stop taking her blood pressure medicine and that she jsut got her blood pressure all straightened out. Patient stated that she has no concern or questions at this time. Moy More
[2024-03-16 14:22] LABS: MRSA DNA PCR Negative (Negative)
== END 2024-03-15 13:23 | disposition home or self-care (01) ==
LOC: ER 14:29 → 2ND 16:08
PROVIDERS: Nurse Practitioner; Admitting Provider Student in an Organized Health Care Education/Training Program; Emergency Provider Emergency Medicine; PCP Nurse Practitioner Family; Visit Provider Student in an Organized Health Care Education/Training Program
DX: J10.1 Influenza due to other identified influenza virus with other respiratory manifestations (principal); N17.9 Acute kidney failure, unspecified; J10.01 Influenza due to other identified influenza virus with the same other identified influenza virus pneumonia; K21.9 Gastro-esophageal reflux disease without esophagitis; I10 Essential (primary) hypertension; E11.9 Type 2 diabetes mellitus without complications; A41.9 Sepsis, unspecified organism; E78.5 Hyperlipidemia, unspecified; Z79.890 Hormone replacement therapy; Z79.84 Long term (current) use of oral hypoglycemic drugs; Z79.82 Long term (current) use of aspirin; Z79.899 Other long term (current) drug therapy; Z74.1 Need for assistance with personal care; Z60.2 Problems related to living alone
CPT/HCPCS: 36415; 71045; 80053; 80329; 81001; 82607; 82728; 82746; 82962; 83036; 83540; 83550; 83735; 83880; 84439; 84443; 84484; 85007; 85025; 87070; 87205; 87641; 93005; 97162; 97165; 99285; G0378; G0480; J0131; J0456; J0696; J1650; J1940; J2405; J3475; J7030; J7050